=== PATIENT | male | born 1950 | race Caucasian/White ===

== ENCOUNTER 2017-12-11 06:25 | Observation (INO) | payer BC ==
[~2017-12-11] VITALS: Ht 180.3 cm; Wt 130.6 kg
[~2017-12-11 06:25] MED LIST: ASPIRIN325 MG PO; ATACAND HCT 321 EAC1 PO; ATORVASTATIN CA10 MG PO; CARTIA XT180 MG PO; CLONIDINE HCL0.2 MG PO; HUMALOG100 UNIT/1 PO; INVOKANA PO; METFORMIN HCL500 MG PO; MULTIVITAMINS1 EAC7 PO; TRESIBA SQ; TRULICITY SQ; VITAMIN B-121000 MCG PO; VITAMIN D1000 UNI1 PO; VITAMIN E1000 UNI2 PO
[2017-12-11] MEDS ORDERED: NOVOLOG100 UNIT/1 SQ (07:20)
[2017-12-11] MEDS ORDERED: DULAGLUTIDE SQ (07:20)
[2017-12-11 07:33] LABS: BASOPHILS % 0.5 % (0.0-1.0); EOSINOPHILS # (AUTO) 0.2 (0.0-0.4); EOSINOPHILS % 2.1 % (0.0-6.0); HEMATOCRIT 44.3 % (38.2-49.6); HEMOGLOBIN 14.9 g/dL (14.0-18.0); LYMPHOCYTES # (AUTO) 1.5 (1.0-3.2); MEAN CORPUSCULAR HEMOGLOBIN 28.9 pg (28-32); MEAN CORPUSCULAR HGB CONC 33.6 g/dL (31-35); MEAN CORPUSCULAR VOLUME 85.9 fL (81-99); MONOCYTES % 12.6 % (4.4-11.3); NEUTROPHILS # (AUTO) 4.9 (2.1-6.9); NEUTROPHILS % 63.8 % (38.7-80.0); PLATELET COUNT 185 x10e3/uL (140-360); RED BLOOD COUNT 5.16 x10e6/uL (4.3-5.7); RED CELL DISTRIBUTION WIDTH 15.1 % (11.7-14.4)
--- NOTE | 2017-12-11 07:42 | Diagnostic Imaging Report ---
PROCEDURE: X-RAY CHEST, TWO VIEWS COMPARISON: 11/14/2016. INDICATIONS: LEFT SIDE CHEST PAIN FINDINGS: Lungs are well-inflated. No focal airspace consolidation, pleural effusion, or pneumothorax. Probable calcified granuloma left suprahilar region, unchanged. Stable cardiomediastinal contour with mild tortuosity of the thoracic aorta. Cardiac silhouette is at the upper limits of normal in size without pulmonary edema. No acute osseous abnormality. CONCLUSION: No acute cardiopulmonary abnormality. Dictated by: Pineda Cespedes M.D. on 12/11/2017 at 7:45 Electronically approved by: Pineda Cespedes M.D. on 12/11/2017 at 7:45
[2017-12-11 07:49] LABS: ALANINE AMINOTRANSFERASE 31 IU/L (0-55); ALBUMIN/GLOBULIN RATIO 1.1 (0.8-2.0); ALKALINE PHOSPHATASE 76 IU/L (40-150); BLOOD UREA NITROGEN 18 mg/dL (7-26); BUN/CREATININE RATIO 17 (6-25); CALCIUM 9.6 mg/dL (8.4-10.2); CARBON DIOXIDE 26 mmol/L (22-29); CHLORIDE 100 mmol/L (98-107); CREATINE KINASE 100 IU/L (30-200); CREATININE, SERUM 1.07 mg/dL (0.72-1.25); EST GLOMERULAR FILTRATION RATE > 60 ML/MIN (60-); GLUCOSE 116 mg/dL (74-118); SODIUM 137 mmol/L (136-145)
[2017-12-11] MEDS ORDERED: ASPIRIN 81 MG CHEW TAB PO ONE (09:15)
[2017-12-11] MEDS ORDERED: SODIUM CHLORIDE FLUSH 10 ML SYR INJ PRN (09:15)
[2017-12-11 10:37] LABS: CLARITY,URINE SL CLOUDY (CLEAR); COLOR,URINE YELLOW (YELLOW); KETONES,URINE NEGATIVE (NEGATIVE); LEUKOCYTE ESTERASE ,URINE NEGATIVE (NEGATIVE); NITRITE,URINE NEGATIVE (NEGATIVE); PROTEIN,URINE DIPSTICK TRACE (NEGATIVE)
[2017-12-11 10:38] LABS: BILIRUBIN,URINE NEGATIVE (NEGATIVE); URINE UROBILINOGEN 0.2 mg/dL (0.2 - 1)
[2017-12-11 10:48] VITALS: BP 158/82
[2017-12-11 10:53] VITALS: BP 158/82
[2017-12-11 11:16] LABS: EPITHELIAL CELLS,URINE RARE /LPF; WBC,URINE (MAN) 0-5 /HPF (0-5)
--- NOTE | 2017-12-11 13:49 | Consultation ---
DATE OF CONSULTATION: December 11, 2017 REASON FOR CONSULTATION: Chest discomfort. HISTORY OF PRESENT ILLNESS: This is a 67-year-old man with a history of hypertension, hyperlipidemia, obesity, diabetes mellitus who presented to the emergency department with arm and chest discomfort. The patient states that he first developed arm pain a few days ago which then radiated into the left axillary and flank area over the last 24 hours. The patient's symptoms are moderate to severity in intensity, worse with movement of his arm in certain positions, not worse with exertion, no associated shortness of breath, palpitations, diaphoresis, nausea or vomiting. Patient has no prior cardiac testing or prior myocardial infarctions, heart failure, arrhythmias, or valvular heart disease. Upon arrival to our facility, the patient was noted to be mildly hypertensive with one set of negative cardiac enzymes. A chest x-ray showed clear lung golden with no cardiomegaly. REVIEW OF SYSTEMS: A 12-point review of systems was conducted, is negative other than that in the HPI. PAST MEDICAL HISTORY: Hypertension, hyperlipidemia, diabetes mellitus, obesity. PAST SURGICAL HISTORY: Orthopedic knee surgery, colonoscopy. PAST FAMILY HISTORY: No premature CAD or sudden cardiac . SOCIAL HISTORY: No illicit drug use, alcohol use or tobacco use. ALLERGIES: NO KNOWN DRUG ALLERGIES. MEDICATIONS: See medication reconciliation form. PHYSICAL EXAMINATION VITAL SIGNS: Temperature is 96.9 degrees Fahrenheit, heart rate is 89, respirations are 17, blood pressure is 165/94, oxygen saturation is 98% on room air. GENERAL: He is a well appearing, obese, man lying comfortably in bed. HEAD: Normocephalic, atraumatic. EYES: The extraocular muscles are intact. Conjunctivae is clear. NECK: No JVD, no bruits. CARDIOVASCULAR: Regular rate and rhythm with a mild systolic murmur heard best at the left lower sternal border. Normal S1 and S2. No S3 appreciated. LUNGS: Clear to auscultation bilaterally. No wheezing, no rales. ABDOMEN: Soft, nontender, nondistended. EXTREMITIES: There is trace edema. VASCULAR: Diminished pulses. SKIN: There is a erythematous, pustular and tender rash noted over the left thoracic area wrapping around the axillary region into the anterior chest wall in a thoracic dermatomal pattern. NEUROLOGIC: No focal deficits noted. Cranial nerves grossly intact. PSYCHIATRIC: Normal mood and affect. LABORATORY DATA: All reviewed and were notable for white blood cell count of 7.6, hemoglobin 14.9, platelets 185. Sodium 137, potassium 4, creatinine 1.07. Normal liver function tests. CK is 100, CK-MB is 1.9. Troponin I is less than 0.001. Chest x-ray shows no acute cardiopulmonary abnormality. A 12-lead electrocardiogram shows normal sinus rhythm with first degree AV block, left axis deviation, poor R wave progression. IMPRESSION AND PLAN 1. Precordial pain. Patient has one set of negative cardiac enzymes and a 12-lead electrocardiogram showing no active ischemia or infarction. His symptoms are related to movement of the left upper extremity and touch. He has no exertional cardiac symptoms. I believe his pain is related to shingles. Will defer treatment of this to primary team. I would obtain one additional set of cardiac enzymes to rule out acute myocardial infarction. Patient's symptoms have been present for approximately 2 to 3 days so his cardiac enzymes likely would be elevated if this is an acute cardiac event. 2. Hypertension. Patient's blood pressure is elevated likely due to pain. Control the patient's pain. Continue all home antihypertensive medications. These can be titrated as needed. If needed for better blood pressure control after pain control, can start amlodipine. 3. Hyperlipidemia. Lipid panel will be checked and he can continue statin medications. 4. Diabetes mellitus. Check a hemoglobin A1c and treatment per primary team. 5. Abnormal electrocardiogram. Patient has poor R wave progression. Patient likely would benefit from cardiac testing however this can be done as an outpatient. 6. Herpes zoster. This is likely contributing to his symptoms. Treatment per primary team. I would like to thank Dr. Polanco for allowing me to assist in this patient's care. If the patient has one additional set of cardiac enzymes I feel he is safe from a cardiovascular standpoint for discharge with outpatient stress testing and echocardiography. Job#: [id number] TOBI
[2017-12-11 15:48] LABS: CREATINE KINASE 76 IU/L (30-200)
[2017-12-11 16:39] VITALS: BP 149/70
[2017-12-11 17:00] VITALS: BP 149/70
== END 2017-12-11 17:17 | disposition home or self-care (01) ==
LOC: ER 06:25 → ERHOLD 09:20 → IMCU 10:24
DX: R07.2 Precordial pain (principal); R94.31 Abnormal electrocardiogram [ECG] [EKG]; E11.9 Type 2 diabetes mellitus without complications; I10 Essential (primary) hypertension; I25.10 Atherosclerotic heart disease of native coronary artery without angina pectoris; E78.5 Hyperlipidemia, unspecified; B02.9 Zoster without complications
CPT/HCPCS: 36415; 71046; 80053; 81001; 82550; 82553; 82948; 84484; 85025; 93005; 93306; 99284; G0378